=== PATIENT | male | born 1980 | race Caucasian/White ===

== ENCOUNTER 2022-01-17 06:06 | Emergency (ER) | payer OTHER ==
[~2022-01-17] VITALS: Ht 185.4 cm; Wt 90.7 kg
[~2022-01-17 06:06] MED LIST: IBUP800 PO; MUPI2TO TOP; SULTRIDS PO
== END 2022-01-17 07:02 | disposition home or self-care (01) ==
LOC: ER 06:06
DX: H00.013 Hordeolum externum right eye, unspecified eyelid (principal)
CPT/HCPCS: 99282

== ENCOUNTER 2022-04-11 08:33 | Emergency (ER) | payer OTHER ==
[~2022-04-11] VITALS: Ht 185.4 cm; Wt 90.7 kg
[2022-04-11] MEDS ORDERED: CEPH500 PO (10:30)
[2022-04-11] MEDS ORDERED: SULTRIDS PO (10:30)
== END 2022-04-11 11:14 | disposition home or self-care (01) ==
LOC: ER 08:33
DX: L03.113 Cellulitis of right upper limb (principal); L02.511 Cutaneous abscess of right hand
CPT/HCPCS: 73130

== ENCOUNTER 2024-03-15 00:03 | Emergency (ER) | payer OTHER ==
[~2024-03-15] VITALS: Ht 182.9 cm; Wt 93.0 kg
[~2024-03-15 00:03] MED LIST changes: +CEPH500 PO
[2024-03-15] MEDS ORDERED: Doxycycline Hyclate 100 MG TAB PO ONE (01:15)
[2024-03-15] MEDS ORDERED: DOXY100 PO (01:16)
[2024-03-15 01:40] VITALS: BP 149/102
[2024-03-15 01:42] LABS: Influenza A, PCR NEGATIVE (NEGATIVE); Influenza B, PCR NEGATIVE (NEGATIVE); Resp Syncytial Virus, PCR NEGATIVE (NEGATIVE); SARS-Cov-2 (COVID-19) PCR, MMC NEGATIVE (NEGATIVE)
== END 2024-03-15 01:45 | disposition home or self-care (01) ==
LOC: ER 00:03
PROVIDERS: Emergency Medicine
DX: J18.9 Pneumonia, unspecified organism (principal)
CPT/HCPCS: 0241U; 71046; 93005; 93010; 99284-25; A9270